=== PATIENT | female | born 1975 | race Native Hawaiian/Other Pacific Islander ===

== ENCOUNTER 2017-07-19 07:50 | Emergency (ER) | payer OTHER ==
[~2017-07-19] VITALS: Ht 182.9 cm; Wt 113.4 kg
[~2017-07-19 07:50] MED LIST: ALORA0.1 MG TD; ALPR0.5T24 PO; ESTR1TAB13 PO; FLUOXETINE20 M2 PO; FURO20TA67 PO; GRALISE600 MG PO; HORIZANT300 MG PO; HYDR10TA47 PO; LEXAPRO10 MG OR; OXYCODONE HCL15 MG PO; PRAVASTATIN10 MG PO; TRAZ100T PO; [UNRECOGNIZED DRUG - CODE] PO
[2017-07-19 08:01] VITALS: BP 125/91; TEMP 98.9
== END 2017-07-19 08:55 | disposition home or self-care (01) ==
LOC: ED 07:50
DX: J02.9 Acute pharyngitis, unspecified (principal)
CPT/HCPCS: 99282

== ENCOUNTER 2017-10-25 13:37 | Emergency (ER) | payer OTHER ==
[~2017-10-25] VITALS: Ht 182.9 cm; Wt 99.8 kg
[2017-10-25 13:57] VITALS: BP 149/92; TEMP 98.2
== END 2017-10-25 15:55 | disposition home or self-care (01) ==
LOC: ED 13:37
DX: K13.0 Diseases of lips (principal)
CPT/HCPCS: 96372; 99282; J0696

== ENCOUNTER 2019-02-02 05:48 | Emergency (ER) | payer OTHER ==
[~2019-02-02] VITALS: Ht 182.9 cm; Wt 108.9 kg
[2019-02-02 05:55] VITALS: BP 139/87; TEMP 98.9
== END 2019-02-02 06:10 | disposition home or self-care (01) ==
LOC: ED 05:48
DX: F41.9 Anxiety disorder, unspecified (principal); R22.0 Localized swelling, mass and lump, head
CPT/HCPCS: 99281

== ENCOUNTER 2019-08-01 22:10 | Emergency (ER) | payer BC ==
[~2019-08-01] VITALS: Ht 182.9 cm; Wt 99.8 kg
[2019-08-01 23:50] VITALS: BP 123/67; TEMP 99
== END 2019-08-01 23:50 | disposition home or self-care (01) ==
LOC: ED 22:10
DX: B34.9 Viral infection, unspecified (principal)
CPT/HCPCS: 87502; 87651; 96360; 96375; 99284; J1885

== ENCOUNTER 2020-07-15 08:18 | Outpatient (CLI) | payer BC | END 2020-07-15 20:52 | disposition home or self-care (01) | LOC: CT 08:18 | PROVIDERS: ATTEND Otolaryngology | DX: R13.12 Dysphagia, oropharyngeal phase (principal) | CPT/HCPCS: 36415; 82565; 84520; Q9963 ==

== ENCOUNTER 2022-03-16 06:17 | Emergency (ER) | payer OTHER ==
[~2022-03-16] VITALS: Ht 182.9 cm; Wt 104.3 kg
[2022-03-16 06:22] VITALS: BP 156/93; TEMP 98
== END 2022-03-16 06:56 | disposition home or self-care (01) ==
LOC: ED 06:17
DX: J02.9 Acute pharyngitis, unspecified (principal); B37.89 Other sites of candidiasis; R22.1 Localized swelling, mass and lump, neck; F17.210 Nicotine dependence, cigarettes, uncomplicated
CPT/HCPCS: 99281

== ENCOUNTER 2022-04-02 17:33 | Emergency (ER) | payer OTHER ==
[~2022-04-02] VITALS: Ht 182.9 cm; Wt 99.8 kg
[2022-04-02 17:48] VITALS: BP 181/86; TEMP 98.8
== END 2022-04-02 19:36 | disposition home or self-care (01) ==
LOC: ED 17:33
DX: S16.1XXA Strain of muscle, fascia and tendon at neck level, initial encounter (principal); S46.811A Strain of other muscles, fascia and tendons at shoulder and upper arm level, right arm, initial encounter; V89.2XXA Person injured in unspecified motor-vehicle accident, traffic, initial encounter; Y92.89 Other specified places as the place of occurrence of the external cause
CPT/HCPCS: 99282

== ENCOUNTER 2022-09-28 08:15 | Outpatient (CLI) | payer BC | END 2022-09-28 19:08 | disposition home or self-care (01) | LOC: RAD 08:15 | PROVIDERS: ATTEND Nurse Practitioner Family | DX: R13.12 Dysphagia, oropharyngeal phase (principal) ==

== ENCOUNTER 2022-10-03 14:01 | Outpatient (CLI) | payer BC | END 2022-10-03 20:42 | disposition home or self-care (01) | LOC: RAD 14:01 | PROVIDERS: ATTEND Nurse Practitioner Family | DX: R13.12 Dysphagia, oropharyngeal phase (principal) ==